=== PATIENT | female | born 1950 | race Caucasian/White ===

== ENCOUNTER 2018-05-06 08:42 | Outpatient (CLI) | payer OTHER | END 2018-05-06 09:24 | disposition home or self-care (01) | LOC: NUCLEAR 08:42 | DX: I65.29 Occlusion and stenosis of unspecified carotid artery (principal); R55 Syncope and collapse ==

== ENCOUNTER → 2018-12-17 | Outpatient (CLI) | payer OTHER | END | disposition home or self-care (01) | LOC: NUCLEAR 14:01 | DX: M81.0 Age-related osteoporosis without current pathological fracture (principal) ==